=== PATIENT | female | born 1950 | race American Indian/Alaskan Native ===

== ENCOUNTER 2018-03-26 18:53 | Emergency (ER) | payer SELFPAY ==
[2018-03-26 19:14] VITALS: TEMP 99
--- NOTE | 2018-03-26 19:33 | ED PDOC ---
Arrival/HPI - General Chief Complaint: Back Pain Time Seen by Provider: 03/26/18 19:14 Historian: Patient - History of Present Illness Narrative History of Present Illness (Text): 03/26/18 19:30 67 year old female, whose past medical history includes hypertension, who presents to the ED complaining of back pain x 1 month. Patient denies any trauma , nausea, vomiting, diarrhea, neck pain, chest pain, SOB, or any other complaints. Time/Duration: Other (1 month) Symptom Onset: Gradual Symptom Course: Unchanged Activities at Onset: Light Context: Home Past Medical History - Provider Review Nursing Documentation Reviewed: Yes - Infectious Disease Hx of Infectious Diseases: None - Reproductive Menopause: Yes - Cardiac Hx Cardiac Disorders: Yes Hx Hypertension: Yes - Pulmonary Hx Respiratory Disorders: No - Neurological Hx Neurological Disorder: No - Hematological/Oncological Hx Blood Disorders: No - Integumentary Hx Dermatological Disorder: No - Genitourinary/Gynecological Hx Genitourinary Disorders: No - Psychiatric Hx Substance Use: No - Anesthesia Hx Anesthesia: No Family/Social History - Physician Review Nursing Documentation Reviewed: Yes Family/Social History: Unknown Family HX Smoking Status: Current Some Days Smoker Hx Alcohol Use: Yes Frequency of alcohol use: Socially Hx Substance Use: No Allergies/Home Meds Allergies/Adverse Reactions: Allergies No Known Allergies Allergy (Verified 03/26/18 19:14) Home Medications: Home Meds Medication Instructions Recorded Confirmed Metoprolol Tartrate [Lopressor] 12.5 mg PO BID 03/26/18 03/26/18 amLODIPine [Norvasc] 10 mg PO DAILY 03/26/18 03/26/18 Review of Systems - Physician Review All systems were reviewed & negative as marked: Yes - Review of Systems Constitutional: Normal Eyes: Normal ENT: Normal Respiratory: Normal. absent: SOB, Cough Cardiovascular: Normal. absent: Chest Pain Gastrointestinal: Normal. absent: Abdominal Pain, Diarrhea, Nausea, Vomiting Genitourinary Female: Normal. absent: Dysuria, Frequency Musculoskeletal: Back Pain. absent: Neck Pain Skin: Normal. absent: Rash Neurological: Normal. absent: Headache, Dizziness Endocrine: Normal Hemo/Lymphatic: Normal Psychiatric: Normal Physical Exam - Physical Exam Physical Exam Limitations: Uncooperative (Patient not allowing of full PE) Vital Signs Reviewed: Yes Vital Signs Temp Pulse Resp BP Pulse Ox 03/27/18 00:49 82 17 149/76 100 03/26/18 21:00 86 16 151/84 H 100 03/26/18 19:09 99 F 85 20 142/92 H 98 Temperature: Afebrile Blood Pressure: Hypertensive Pulse: Regular Respiratory Rate: Normal Appearance: Positive for: Well-Appearing, Non-Toxic, Comfortable Pain Distress: None Mental Status: Positive for: Alert and Oriented X 3 - Systems Exam Psychiatric: Present: Normal Concentration Medical Decision Making ED Course and Treatment: 03/26/18 19:33 Impression: 67 year old female presents to the ED complaining of back pain x 1 month. Plan: -- CT Lumbar Spine -- EKG -- Cardiac ISO -- Labs -- CXR -- Toradol -- Urine Culture -- UA Progress Notes: 03/26/18 21:07 CT Lumbar Spine Without Intravenous Contrast CLINICAL HISTORY: 67 years old, female; Pain; Low back pain TECHNIQUE: Axial computed tomography images of the lumbar spine without intravenous contrast. All CT scans at this facility use at least one of these dose optimization techniques: automated exposure control; mA and/or kV adjustment per patient size (includes targeted exams where dose is matched to clinical indication); or iterative reconstruction. COMPARISON: No relevant prior studies available. FINDINGS: Vertebrae: Scoliosis. No acute fracture. Discs/spinal canal/neural foramina: Moderate multilevel spondylosis. Most notably, prominent disc bulges at L4-5 and L5-S1 resulting in moderate canal stenosis. Neural foraminal narrowing is mild bilaterally at L2-3, moderate bilaterally at L3-4, moderate to severe bilaterally at L4-5, and severe bilaterally at L5-S1. Soft tissues: Unremarkable. 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 IMPRESSION: No acute fracture/dislocation. Multilevel spondylosis, as above 03/26/18 23:59 Chest X-ray reviewed, shows: No acute processes - Lab Interpretations Lab Results: 03/26/18 19:53 03/26/18 19:53 Lab Results 03/26/18 22:20: Urine Color Colorless, Urine Appearance Slight-cloudy, Urine pH 6.5, Ur Specific [place] <= 1.005, Urine Protein Negative, Urine Glucose (UA) Negative, Urine Ketones Negative, Urine Blood Negative, Urine Nitrate Negative, Urine Bilirubin Negative, Urine Urobilinogen 0.2, Ur Leukocyte Esterase Large H , Urine RBC Negative, Urine WBC 1 - 3, Ur Epithelial Cells 0 - 2, Urine Bacteria Trace 03/26/18 19:53: Sodium 136, Potassium 4.7, Chloride 99, Carbon Dioxide 22, Anion Gap 19, BUN 38 H, Creatinine 1.7 H, Est GFR ( Amer) 36, Est GFR ( Non-Af Amer) 30, Random Glucose 98, Calcium 9.7, Phosphorus 3.0, Magnesium 2.2, Total Bilirubin 0.3, AST 32, ALT 15, Alkaline Phosphatase 88, Lactate Dehydrogenase 435, Total Creatine Kinase 52, Troponin I < 0.01, Total Protein 8.1, Albumin 4.3, Globulin 3.9, Albumin/Globulin Ratio 1.1 03/26/18 19:53: PT 10.3, INR 0.91 03/26/18 19:53: WBC 12.7 H, RBC 3.74, Hgb 12.6, Hct 36.1, MCV 96.5, MCH 33.7, MCHC 34.9, RDW 15.7 H, Plt Count 292, MPV 8.6, Gran % 64.5, Lymph % (Auto) 27.0 , Smith % (Auto) 7.0 H, Eos % (Auto) 1.3 L, Baso % (Auto) 0.2, Gran # 8.18 H, Lymph # (Auto) 3.4, Smith # (Auto) 0.9 H, Eos # (Auto) 0.2, Baso # (Auto) 0.02 - RAD Interpretation Radiology Orders: 03/26/18 19:20 LUMBAR SPINE W/O CONTRAST [CT] Stat 03/26/18 19:45 CHEST PORTABLE [RAD] Stat - Medication Orders Current Medication Orders: Discontinued Medications Ceftriaxone Sodium (Rocephin 2 Gm Ivpb) 2 gm in 100 mls @ 100 mls/hr IVPB STAT STA PRN Reason: Protocol Stop: 03/27/18 00:55 Last Admin: 03/26/18 23:58 Dose: 100 mls/hr eMAR Start Stop Document 03/26/18 23:58 RD (Rec: 03/27/18 00:32 RD [id number]) Intravenous Solution Start Date 03/26/18 Start Time 23:58 End Date 03/27/18 End time 00:58 Total Infusion Time 60 Ketorolac Tromethamine (Toradol) 15 mg IVP STAT STA Stop: 03/26/18 19:21 Last Admin: 03/26/18 19:53 Dose: 15 mg MAR Pain Assessment Document 03/26/18 19:53 RD (Rec: 03/26/18 19:[address]) Pain Reassessment Is this a pain reassessment? No Sleep Is patient sleeping during reassessment? No Presence of Pain Presence of Pain Yes IVP Administration Document 03/26/18 19:53 RD (Rec: 03/26/18 19:53 RD [id number]) Charges for Administration # of IVP Administrations 1 - Scribe Statement The provider has reviewed the documentation as recorded by the Scribe Mirta Harrington All medical record entries made by the Scribe were at my direction and personally dictated by me. I have reviewed the chart and agree that the record accurately reflects my personal performance of the history, physical exam, medical decision making, and the department course for this patient. I have also personally directed, reviewed, and agree with the discharge instructions and disposition. Disposition/Present on Arrival - Present on Arrival Any Indicators Present on Arrival: No History of DVT/PE: No History of Uncontrolled Diabetes: No Urinary Catheter: No History of Decub. Ulcer: No History Surgical Site Infection Following: None - Disposition Have Diagnosis and Disposition been Completed?: Yes Diagnosis: Back pain, chronic, Hypertension, Acute UTI (urinary tract infection) Disposition: HOME/ ROUTINE Disposition Time: 01:00 Patient Plan: Discharge Condition: GOOD Discharge Instructions (ExitCare): Low Back Pain (DC), Urinary Tract Infection , Adult (DC) Additional Instructions: Mrs Chau- You need a primary doctor. You can become a patient of our clinic. Call tomorrow (Friday) to make an appointment. You have a urinary tract infection. Please take the antibiotics until they are all gone. Return to us if worse or new symptoms. Blake- Dr. Hussein Bonner Prescriptions: Cephalexin [Keflex] 500 mg PO TID #30 capsule Referrals: [facility] [Outside] - Follow up with primary Mary Lou Levin MD [Staff Provider] - Follow up with primary Forms: [facility] ([place]), WORK NOTE
[2018-03-26 20:24] LABS: BASO # 0.02 K/mm3 (0.0-2.0); BASO % 0.2 % (0.0-3.0); EOS # 0.2 (0.0-0.7); EOS % 1.3 % (1.5-5.0); GRAN # 8.18 (1.4-6.5); GRAN % 64.5 % (50.0-68.0); HEMOGLOBIN 12.6 g/dL (12.0-16.0); LYMPH # 3.4 (1.2-3.4); MEAN CELL VOLUME 96.5 fl (80.0-105.0); MEAN CORPUSCULAR HEMOGLOBIN 33.7 pg (25.0-35.0); MEAN CORPUSCULAR HGB CONC 34.9 g/dl (31.0-37.0); MEAN PLATELET VOLUME 8.6 fl (7.0-11.0); MONO # 0.9 (0.1-0.6); RBC 3.74 10^6/uL (3.5-6.1); RED CELL DISTRIBUTION WIDTH 15.7 % (11.5-14.5); WHITE BLOOD COUNT 12.7 10^3/ul (4.5-11.0)
[2018-03-26 20:26] LABS: INR 0.91; PROTHROMBIN TIME 10.3 SECONDS (9.4-12.5)
[2018-03-26 20:31] LABS: ALB/GLOB RATIO 1.1 (1.1-1.8); ALBUMIN 4.3 g/dL (3.0-4.8); ALT/SGPT 15 U/L (7-56); AST/SGOT 32 U/L (14-36); BLOOD UREA NITROGEN 38 mg/dL (7-21); CALCIUM 9.7 mg/dL (8.4-10.5); GFR AFRICAN-AMERICAN 36; GFR NON-AFRICAN AMERICAN 30
[2018-03-26 20:41] LABS: TROPONIN I < 0.01 ng/mL
[2018-03-26 21:01] VITALS: O2SAT 100
[2018-03-26 22:35] LABS: PH,URINE 6.5 (4.7-8.0); URINE APPEARANCE SLIGHT-CLOUDY (CLEAR); URINE BILIRUBIN NEGATIVE (NEGATIVE); URINE BLOOD NEGATIVE (NEGATIVE); URINE COLOR COLORLESS (YELLOW); URINE GLUCOSE (UA) NEGATIVE (NEGATIVE); URINE LEUKOCYTE ESTERASE LARGE Leu/uL (NEGATIVE); URINE PROTEIN NEGATIVE mg/dL (<30 mg/dL); URINE UROBILINOGEN 0.2 E.U./dL (<1 E.U./dL)
[2018-03-26 22:38] LABS: URINE BACTERIA TRACE (NEG); URINE EPITHELIAL CELLS 0 - 2 /hpf (0-5); URINE RBC NEGATIVE /hpf (0-2)
[2018-03-26] MEDS ORDERED: cefTRIAXone 2 GM IN NS 2 GM/100 ML BAG IVPB STA (23:56)
[2018-03-27 00:49] VITALS: BP 149/76; PULSE 82; RESP 17
--- NOTE | 2018-03-27 09:06 | RAD ---
Date of service: 03/26/2018 HISTORY: Hypertension and Low Back Pain COMPARISON: No prior. FINDINGS: LUNGS: No active pulmonary disease. PLEURA: No significant pleural effusion identified, no pneumothorax apparent. CARDIOVASCULAR: Normal. OSSEOUS STRUCTURES: No significant abnormalities. VISUALIZED UPPER ABDOMEN: Normal. OTHER FINDINGS: None. IMPRESSION: No active disease.
--- NOTE | 2018-03-27 10:06 | CT ---
Date of service: 03/26/2018 PROCEDURE: CT Lumbar Spine without contrast HISTORY: Low Back Pain COMPARISON: None available. TECHNIQUE: Axial computed tomography images were obtained of the lumbar spine without the use of intravenous contrast. Coronal and sagittal reformatted images were created and reviewed. Radiation dose: Total exam DLP = mGy-cm. This CT exam was performed using one or more of the following dose reduction techniques: Automated exposure control, adjustment of the mA and/or kV according to patient size, and/or use of iterative reconstruction technique. FINDINGS: VERTEBRAE: Unremarkable. No fracture. Normal alignment. DISCS/SPINAL CANAL/NEURAL FORAMINA: Multilevel degenerative disc disease with vacuum disc phenomenon and disc bulging at L4-5 and L5-S1. Bilateral from stenosis at L5-S1. PARASPINAL SOFT TISSUES: Unremarkable. OTHER FINDINGS: None. IMPRESSION: Multilevel degenerative changes. No fracture.
== END 2018-03-27 00:49 | disposition home or self-care (01) ==
LOC: ED 18:53 → MERGE 18:53 → ED 03-27 00:49
DX: I10 Essential (primary) hypertension (principal); M54.9 Dorsalgia, unspecified; G89.29 Other chronic pain; N39.0 Urinary tract infection, site not specified; F17.210 Nicotine dependence, cigarettes, uncomplicated
CPT/HCPCS: 71045; 72131; 80053; 81001; 82550; 83615; 83735; 84100; 84484; 85025; 85610; 87086; 87181; 96365; 96374; 99283; J0696; J1885

== ENCOUNTER 2018-04-10 16:17 | Emergency (ER) | payer MEDICARE ==
--- NOTE | 2018-04-10 16:51 | ED PDOC ---
Addendum entered and electronically signed by Rene Cochran DO 04/10/18 20:00 : Addendum Addendum: 04/10/18 19:57 Patient's BP rechecked at 1950, still elevated at 200/100. Patient states she would rather go home and refused dose of IV hydralazine. Will continue with discharge with close follow up at [facility]. Patient agreed to take her medications tonight. Original Note: Arrival/HPI - General Historian: Patient - History of Present Illness Time/Duration: Prior to Arrival Symptom Onset: Gradual Symptom Course: Unchanged Activities at Onset: Rest <Rene Cochran - Last Filed: 04/10/18 19:57> <Boris Long - Last Filed: 04/10/18 21:42> - General Chief Complaint: High Blood Pressure Time Seen by Provider: 04/10/18 16:27 - History of Present Illness Narrative History of Present Illness (Text): 04/10/18 16:48 Patient is a 67 year old female with PMH of HTN and brain aneurysm who presents to ED from [facility] for elevated BP. She denies any symptoms including GALAVIZ, blurred vision, CP, SOB, nausea/vomiting, or peripheral numbness/tingling. She states that she ran out of her BP medicines and only took a single dose of amlodipine this morning. (Rene Cochran) Past Medical History - Provider Review Nursing Documentation Reviewed: Yes - Travel History Have you recently traveled outside [place] w/in the past 3 mons?: No - Infectious Disease Hx of Infectious Diseases: None - Reproductive Menopause: Yes - Cardiac Hx Cardiac Disorders: Yes Hx Hypertension: Yes - Pulmonary Hx Respiratory Disorders: No - Neurological Hx Neurological Disorder: No - Hematological/Oncological Hx Blood Disorders: No - Integumentary Hx Dermatological Disorder: No - Genitourinary/Gynecological Hx Genitourinary Disorders: No - Psychiatric Hx Substance Use: No - Surgical History Hx Coronary Stent: Yes - Anesthesia Hx Anesthesia: No <Rene Cochran - Last Filed: 04/10/18 19:57> Family/Social History - Physician Review Nursing Documentation Reviewed: Yes Family/Social History: Diabetes (father), Neoplasm/Cancer (mother had breast CA) Smoking Status: Heavy Smoker > 10 Cigarettes Daily (1 PPD for 50 years) Hx Alcohol Use: Yes Frequency of alcohol use: Few days per week Hx Substance Use: No <Rene Cochran - Last Filed: 04/10/18 19:57> Allergies/Home Meds <Rene Cochran - Last Filed: 04/10/18 19:57> <DaniBoris monae - Last Filed: 04/10/18 21:42> Allergies/Adverse Reactions: Allergies No Known Allergies Allergy (Verified 03/26/18 19:14) Review of Systems - Review of Systems Constitutional: absent: Fatigue, Fevers Eyes: absent: Vision Changes ENT: absent: Hearing Changes, Sore Throat, Rhinorrhea Respiratory: absent: SOB, Cough Cardiovascular: absent: Chest Pain, Palpitations Gastrointestinal: absent: Abdominal Pain, Nausea, Vomiting Genitourinary Female: absent: Dysuria Skin: absent: Rash Neurological: absent: Headache, Dizziness, Speech Changes, Facial Droop Endocrine: absent: Diaphoresis Psychiatric: absent: Anxiety, Depression <Rene Cochran - Last Filed: 04/10/18 19:57> Physical Exam Vital Signs Reviewed: Yes Temperature: Afebrile Blood Pressure: Hypertensive Pulse: Regular Respiratory Rate: Normal Appearance: Positive for: Well-Appearing, Non-Toxic, Comfortable Pain Distress: None Mental Status: Positive for: Alert and Oriented X 3 - Systems Exam Head: Present: Atraumatic, Normocephalic Pupils: Present: PERRL Extroacular Muscles: Present: EOMI Conjunctiva: Present: Normal Ears: Present: Normal Mouth: Present: Moist Mucous Membranes Pharnyx: Present: Normal. No: ERYTHEMA, EXUDATE Nose (External): Present: Atraumatic Neck: Present: Normal Range of Motion. No: JVD Respiratory/Chest: Present: Clear to Auscultation. No: Wheezes, Rales, Rhonchi Cardiovascular: Present: Regular Rate and Rhythm, Normal S1, S2. No: Murmurs, Rub, Gallop Abdomen: No: Tenderness, Rebound, Guarding Back: Present: Normal Inspection Upper Extremity: Present: Normal Inspection. No: Cyanosis Lower Extremity: Present: Normal Inspection. No: Edema Neurological: Present: CN II-XII Intact, Speech Normal, Motor Func Grossly Intact, Normal Sensory Function, Gait Normal Skin: Present: Warm, Dry Psychiatric: Present: Alert, Oriented x 3 <CochranRene montaño - Last Filed: 04/10/18 19:57> Vital Signs Temp Pulse Resp BP Pulse Ox 04/10/18 20:00 98 F 74 18 194/100 H 100 04/10/18 18:53 98.0 F 71 19 190/95 H 99 04/10/18 18:30 177/105 H 04/10/18 17:00 66 18 177/103 H 99 04/10/18 16:26 98.8 F 67 18 208/121 H 99 Medical Decision Making - Lab Interpretations I have reviewed the lab results: Yes Interpretation: All labs normal - RAD Interpretation Insulation Cupola Operator: Radiologist - EKG Interpretation Interpreted by ED Physician: Yes Comparison: No previous EKG avail. <Rene Cochran - Last Filed: 04/10/18 19:57> <Boris Long - Last Filed: 04/10/18 21:42> ED Course and Treatment: 04/10/18 16:52 -Patient with asymptomatic HTN secondary to running out of her medicines -There was concern given her history of aneurysm -Will get CBC, CMP, CT head wo contrast to r/o end organ damage and/or aneurismal involvement -Will give dose of home amlodipine and continue to monitor 04/10/18 18:26 -Discussed results of CT regarding mastoid air cells -Otoscopic examination showed mildly opaque TM -Will give amoxicillin 500 mg TID x 7 days for otitis media -Will give 2 week supply of BP medications, patient agreed to follow up with [facility] by then -Will refer to ENT for additional management -Labs without evidence of end organ damage -Will discharge with close follow up at [facility] 04/10/18 19:25 -BP decreased s/p single dose of amlodipine -Encouraged patient follow up at [facility] (Rene Cochran) 04/10/18 21:37 pt seen with resident. sent in from clin for htn. h/of aneursym. pt denies any galaviz or complaint. labs neg,e xcept mild leukocytosis ct incidental finding of om and mastoid effusion, no mastoid ttp on exam. emprica antibiotics given. mild leukocytosis improved from recent. pt refuses further b/p mangement in er, asking for dc. neuro intac.t 04/10/18 21:38 (Boris Long) - Lab Interpretations Lab Results: 04/10/18 17:25 04/10/18 17:25 Lab Results 04/10/18 17:25: Sodium 140, Potassium 4.6, Chloride 98, Carbon Dioxide 32, Anion Gap 14, BUN 18, Creatinine 1.1, Est GFR ( Amer) 60, Est GFR (Non- Af Amer) 50, Random Glucose 90, Calcium 9.5, Magnesium 1.9, Total Bilirubin 0.6 , AST 32, ALT 24, Alkaline Phosphatase 98, Lactate Dehydrogenase 539, Total Creatine Kinase 85, Troponin I < 0.01, Total Protein 8.0, Albumin 4.3, Globulin 3.8, Albumin/Globulin Ratio 1.1 04/10/18 17:25: Urine Color Yellow, Urine Appearance Clear, Urine pH 7.5, Ur Specific [place] 1.010, Urine Protein 100 H, Urine Glucose (UA) Negative, Urine Ketones Negative, Urine Blood Negative, Urine Nitrate Negative, Urine Bilirubin Negative, Urine Urobilinogen 1.0 H, Ur Leukocyte Esterase Negative, Urine RBC TEST NOT PERFORMED, Urine WBC 5 - 10, Ur Epithelial Cells 6 - 8 04/10/18 17:25: PT 9.7, INR 0.85, APTT 27.8 04/10/18 17:25: WBC 12.4 H, RBC 3.91, Hgb 13.1, Hct 37.5, MCV 95.9, MCH 33.5, MCHC 34.9, RDW 16.1 H, Plt Count 255, MPV 8.5, Gran % 72.9 H, Lymph % (Auto) 20.4 L, [place] % (Auto) 5.3, Eos % (Auto) 1.2 L, Baso % (Auto) 0.2, Gran # 9.03 H , Lymph # (Auto) 2.5, [place] # (Auto) 0.7 H, Eos # (Auto) 0.2, Baso # (Auto) 0.02 - RAD Interpretation Narrative RAD Interpretations (Text): 04/10/18 18:25 CT Head: FINDINGS: HEMORRHAGE: No intracranial hemorrhage. BRAIN: The patient appears to be status post endovascular coiling of an aneurysm at the anterior right side of the stebbins Nielson off the parasagittal plane potentially reflecting anterior communicating, proximal right BRANDEN or MCA aneurysm. Artifacts from these coils obscure the evaluation, particularly the suprasellar cistern and central medial frontal and temporal lobes however no definite acute or subacute lobar infarction is appreciated by standard CT criteria. Likely chronic lacunes are seen at the bilateral external capsules however and there is a chronic lobar infarction at the right parietal lobe posteriorly. There is no mass effect or suspicious extra-axial fluid collection identified. Posterior fossa contents appear unremarkable including the brainstem. VENTRICLES: Unremarkable. No hydrocephalus. CALVARIUM: Unremarkable. PARANASAL SINUSES: Unremarkable as visualized. No significant inflammatory changes. MASTOID AIR CELLS: Probable hypoplastic bilateral mastoid air cells. Left otitis media with mastoid effusion noted. OTHER FINDINGS: None. IMPRESSION: 1. 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 Artifact from this hardware obscure the evaluation however there is no definitive intracranial hemorrhage or mass effect appreciated. No overt CT sign of acute subacute lobar brain infarction. Chronic lobar infarction right parietal lobe with a few tiny chronic lacunes identified of the bilateral internal capsules. 2. Incidental left otitis media and mastoid effusion identified. Hypoplastic bilateral mastoid air cells suggested (Rene Cochran) Radiology Orders: 04/10/18 17:02 HEAD W/O CONTRAST [CT] Stat - EKG Interpretation EKG Interpretation (Text): 04/10/18 18:29 NSR with no significant LVH or bundle branch block (Rene Cochran) - Medication Orders Current Medication Orders: Discontinued Medications Amlodipine Besylate (Norvasc) 10 mg PO STAT STA Stop: 04/10/18 18:12 Last Admin: 04/10/18 18:30 Dose: 10 mg MAR Blood Pressure Document 04/10/18 18:30 CAST (Rec: 04/10/18 18:31 [facility] [id number]) Blood Pressure Blood Pressure (100/60-150/90) 177/105 <Rene Cochran - Last Filed: 04/10/18 19:57> - Scribe Statement The provider has reviewed the documentation as recorded by the Scribe <Boris Long - Last Filed: 04/10/18 21:42> - Scribe Statement Elian Camar[place] Patient Seen With Resident: In agreement with resident note which contains more details about the patient. Patient was seen and evaluated with resident. Came up with plan and treatment together. (Boris Long) Disposition/Present on Arrival - Present on Arrival Any Indicators Present on Arrival: No History of DVT/PE: No History of Uncontrolled Diabetes: No Urinary Catheter: No History of Decub. Ulcer: No History Surgical Site Infection Following: None - Disposition Have Diagnosis and Disposition been Completed?: Yes Disposition Time: 18:59 <Rene Cochran - Last Filed: 04/10/18 19:57> <Boris Long - Last Filed: 04/10/18 21:42> - Disposition Diagnosis: Hypertension, Essential hypertension, Otitis media Disposition: HOME/ ROUTINE Condition: GOOD Discharge Instructions (ExitCare): High Blood Pressure (DC) Prescriptions: amLODIPine [Norvasc] 10 mg PO DAILY #14 tab Amoxicillin 500 mg PO TID 7 Days #21 tablet Metoprolol Tartrate [Lopressor] 12.5 mg PO BID #28 tab Referrals: Chi King DO [Staff Provider] - Follow up with primary Forms: [employer] (Guyanese)
[2018-04-10 18:07] LABS: BASO # 0.02 K/mm3 (0.0-2.0); BASO % 0.2 % (0.0-3.0); EOS # 0.2 (0.0-0.7); EOS % 1.2 % (1.5-5.0); GRAN # 9.03 (1.4-6.5); GRAN % 72.9 % (50.0-68.0); HEMOGLOBIN 13.1 g/dL (12.0-16.0); LYMPH # 2.5 (1.2-3.4); LYMPH % 20.4 % (22.0-35.0); MEAN CELL VOLUME 95.9 fl (80.0-105.0); MEAN CORPUSCULAR HEMOGLOBIN 33.5 pg (25.0-35.0); MEAN CORPUSCULAR HGB CONC 34.9 g/dl (31.0-37.0); MEAN PLATELET VOLUME 8.5 fl (7.0-11.0); MONO # 0.7 (0.1-0.6); MONO % 5.3 % (1.0-6.0); PH,URINE 7.5 (4.7-8.0); RBC 3.91 10^6/uL (3.5-6.1); RED CELL DISTRIBUTION WIDTH 16.1 % (11.5-14.5); URINE BILIRUBIN NEGATIVE (NEGATIVE); URINE BLOOD NEGATIVE (NEGATIVE); URINE GLUCOSE (UA) NEGATIVE (NEGATIVE); URINE LEUKOCYTE ESTERASE NEGATIVE Leu/uL (NEGATIVE); URINE PROTEIN 100 mg/dL (<30 mg/dL); WHITE BLOOD COUNT 12.4 10^3/ul (4.5-11.0)
[2018-04-10 18:10] LABS: URINE APPEARANCE CLEAR (CLEAR); URINE COLOR YELLOW (YELLOW)
[2018-04-10 18:11] LABS: INR 0.85; PARTIAL THROMBOPLASTIN TIME 27.8 Seconds (25.1-36.5)
[2018-04-10 18:16] LABS: PROTHROMBIN TIME 9.7 SECONDS (9.4-12.5); TROPONIN I < 0.01 ng/mL
[2018-04-10 18:19] LABS: ALB/GLOB RATIO 1.1 (1.1-1.8); ALBUMIN 4.3 g/dL (3.0-4.8); ALT/SGPT 24 U/L (7-56); AST/SGOT 32 U/L (14-36); BLOOD UREA NITROGEN 18 mg/dL (7-21); CALCIUM 9.5 mg/dL (8.4-10.5); GFR NON-AFRICAN AMERICAN 50
--- NOTE | 2018-04-10 18:22 | CT ---
Date of service: 04/10/2018 PROCEDURE: CT HEAD WITHOUT CONTRAST. HISTORY: duradn COMPARISON: None available. TECHNIQUE: Axial computed tomography images were obtained through the head/brain without intravenous contrast. Radiation dose: Total exam DLP = 790.10 mGy-cm. This CT exam was performed using one or more of the following dose reduction techniques: Automated exposure control, adjustment of the mA and/or kV according to patient size, and/or use of iterative reconstruction technique. FINDINGS: HEMORRHAGE: No intracranial hemorrhage. BRAIN: The patient appears to be status post endovascular coiling of an aneurysm at the anterior right side of the [place] Nielson off the parasagittal plane potentially reflecting anterior communicating, proximal right BRANDEN or MCA aneurysm. Artifacts from these coils obscure the evaluation, particularly the suprasellar cistern and central medial frontal and temporal lobes however no definite acute or subacute lobar infarction is appreciated by standard CT criteria. Likely chronic lacunes are seen at the bilateral external capsules however and there is a chronic lobar infarction at the right parietal lobe posteriorly. There is no mass effect or suspicious extra-axial fluid collection identified. Posterior fossa contents appear unremarkable including the brainstem. VENTRICLES: Unremarkable. No hydrocephalus. CALVARIUM: Unremarkable. PARANASAL SINUSES: Unremarkable as visualized. No significant inflammatory changes. MASTOID AIR CELLS: Probable hypoplastic bilateral mastoid air cells. Left otitis media with mastoid effusion noted. OTHER FINDINGS: None. IMPRESSION: 1. Prior endovascular therapy for anterior [place] Nielson aneurysm as discussed above. Artifact from this hardware obscure the evaluation however there is no definitive intracranial hemorrhage or mass effect appreciated. No overt CT sign of acute subacute lobar brain infarction. Chronic lobar infarction right parietal lobe with a few tiny chronic lacunes identified of the bilateral internal capsules. 2. Incidental left otitis media and mastoid effusion identified. Hypoplastic bilateral mastoid air cells suggested
[2018-04-10 20:03] VITALS: BP 194/100; PULSE 74; RESP 18; TEMP 98; O2SAT 100
--- NOTE | 2018-04-11 14:36 | CARD ---
APPROVED REPORT Date of service: 04/10/2018 EKG Measurement Heart [id number] <Conclusion> Poor data quality, interpretation may be adversely affected Normal sinus rhythm Moderate voltage criteria for LVH, may be normal variant Prolonged QT Abnormal ECG
== END 2018-04-10 20:05 | disposition home or self-care (01) ==
LOC: ED 16:17
DX: H66.92 Otitis media, unspecified, left ear (principal); I10 Essential (primary) hypertension; F17.210 Nicotine dependence, cigarettes, uncomplicated

== ENCOUNTER 2018-12-23 22:45 | Emergency (ER) | payer MEDICARE ==
--- NOTE | 2018-12-24 00:23 | ED PDOC ---
Arrival/HPI - General Chief Complaint: Back Pain Time Seen by Provider: 12/23/18 23:49 Historian: Patient - History of Present Illness Narrative History of Present Illness (Text): 12/24/18 00:23 A 68 year old female, whose past medical history includes hypertension, presents to the emergency department complaining of right side lower back pain starting tonight. Patient reports also experiencing tinlging going down right leg and toes are numb. Admits to drinking a few shots tonight and denies any trauma. Able to ambulate. Patient denies any urinary symptoms, fever, nausea, vomiting, or any other complaints at this time. Past Medical History - Provider Review Nursing Documentation Reviewed: Yes - Infectious Disease Hx of Infectious Diseases: None - Cardiac Hx Cardiac Disorders: Yes Hx Hypertension: Yes - Pulmonary Hx Respiratory Disorders: No - Neurological Hx Neurological Disorder: No - Hematological/Oncological Hx Blood Disorders: No - Integumentary Hx Dermatological Disorder: No - Genitourinary/Gynecological Hx Genitourinary Disorders: No - Psychiatric Hx Substance Use: No - Surgical History Hx Coronary Stent: Yes - Anesthesia Hx Anesthesia: No Family/Social History - Physician Review Nursing Documentation Reviewed: Yes Family/Social History: No Known Family HX Smoking Status: Heavy Smoker > 10 Cigarettes Daily Hx Alcohol Use: Yes Hx Substance Use: No Allergies/Home Meds Allergies/Adverse Reactions: Allergies No Known Allergies Allergy (Verified 03/26/18 19:14) Review of Systems - Physician Review All systems were reviewed & negative as marked: Yes - Review of Systems Constitutional: absent: Fevers Gastrointestinal: absent: Nausea, Vomiting Genitourinary Female: absent: Dysuria, Frequency, Hematuria, Urine Output Changes Musculoskeletal: Back Pain (right side lower back pain) Physical Exam Appearance: Positive for: Other (mildly intoxicated) Pain Distress: None - Systems Exam Head: Present: Atraumatic, Normocephalic Pupils: Present: PERRL Extroacular Muscles: Present: EOMI Conjunctiva: Present: Normal Mouth: Present: Moist Mucous Membranes Neck: Present: Normal Range of Motion Respiratory/Chest: Present: Clear to Auscultation, Good Air Exchange. No: Respiratory Distress, Accessory Muscle Use Cardiovascular: Present: Regular Rate and Rhythm, Normal S1, S2. No: Murmurs Abdomen: No: Tenderness, Distention, Peritoneal Signs Back: Present: Other (tenderness to right lumbar region). No: Midline Tenderness Upper Extremity: Present: Normal Inspection. No: Cyanosis, Edema Lower Extremity: Present: Normal Inspection, NORMAL PULSES (good DP pulses to feet), Neurovascularly Intact, Other (straight leg raise bilaterally negative). No: Edema, Tenderness (no hip tenderness) Neurological: Present: GCS=15, CN II-XII Intact, Speech Normal Skin: Present: Warm, Dry, Normal Color. No: Rashes Psychiatric: Present: Alert, Oriented x 3, Normal Insight, Normal Concentration Medical Decision Making ED Course and Treatment: 12/24/18 00:28 Impression: 68 year old female with right side lower back pain, patient cur rently mildly intoxicated. Plan: -- Labs -- Urinalysis -- Toradol -- Reassess and disposition Progress Notes: Toradol ordered for pain but patient refused. Intoxicated, promptly fell asleep. In no distress. Norvasc 10mg (home dose) given for HTN. Family concerned for "kidney infection" as back pain is near R flank. Labs and UA done, mild UTI noted. Rx written for macrobid. Patient requesting refill of Norvasc, states she has not taken it for over 2 weeks because her PMD "said that they sent a refill to the pharmacy but it wasn't there". - Medication Orders Current Medication Orders: Discontinued Medications Ketorolac Tromethamine (Toradol) 30 mg IM STAT STA Stop: 12/24/18 00:13 - Scribe Statement The provider has reviewed the documentation as recorded by the Whitney Hussein Provider Scribe Attestation: All medical record entries made by the Whitney were at my direction and personally dictated by me. I have reviewed the chart and agree that the record accurately reflects my personal performance of the history, physical exam, medical decision making, and the department course for this patient. I have also personally directed, reviewed, and agree with the discharge instructions and disposition. Disposition/Present on Arrival - Present on Arrival Any Indicators Present on Arrival: No History of DVT/PE: No History of Uncontrolled Diabetes: No Urinary Catheter: No History of Decub. Ulcer: No History Surgical Site Infection Following: None - Disposition Have Diagnosis and Disposition been Completed?: Yes Diagnosis: UTI (urinary tract infection), Sciatica, Medication refill Disposition: HOME/ ROUTINE Disposition Time: 04:40 Condition: STABLE Discharge Instructions (ExitCare): Sciatica (DC), Urinary Tract Infection, Adult (DC) Additional Instructions: TREVIN REINOSO, thank you for letting us take care of you today. Your provider was Pia Crockett MD and you were treated for BACK PAIN. The emergency medical care you received today was directed at your acute symptoms. If you were prescribed any medication, please fill it and take as directed. It may take several days for your symptoms to resolve. Return to the Emergency Department if your symptoms worsen, do not improve, or if you have any other problems. Please contact your doctor or call one of the physicians/clinics you have been referred to that are listed on the Patient Visit Information form that is included in your discharge packet. Bring any paperwork you were given at discharge with you along with any medications you are taking to your follow up visit. Our treatment cannot replace ongoing medical care by a primary care provider outside of the emergency department. Thank you for allowing the [facility] team to be part of your care today. If you had an X-Ray or CT scan: A Radiologist will review the ED reading if any change in treatment is needed we will contact you. If you had a blood, urine, or wound culture: It will take several days for the results, if any change in treatment is needed we will contact you. If you had an STI test: It will take 48 hours for the results. Please call after 1 week if you have not heard back. Prescriptions: amLODIPine [Norvasc] 10 mg PO DAILY #14 tab Nitrofurantoin Macrocrystals [Macrobid] 100 mg PO BID #14 cap Referrals: Mary Lou Levin MD [Primary Care Provider] - Follow up with primary Forms: [employer] ([place])
[2018-12-24 01:21] LABS: BASO # 0.02 K/mm3 (0.0-2.0); BASO % 0.2 % (0.0-3.0); EOS # 0.2 (0.0-0.7); EOS % 1.6 % (1.5-5.0); HEMOGLOBIN 12.9 g/dL (12.0-16.0); LYMPH % 28.4 % (22.0-35.0); MEAN CORPUSCULAR HEMOGLOBIN 33.1 pg (25.0-35.0); MEAN CORPUSCULAR HGB CONC 33.2 g/dl (31.0-37.0); MEAN PLATELET VOLUME 9.2 fl (7.0-11.0); MONO # 0.7 (0.1-0.6); MONO % 6.6 % (1.0-6.0); RBC 3.9 10^6/uL (3.5-6.1); RED CELL DISTRIBUTION WIDTH 16.2 % (11.5-14.5); WHITE BLOOD COUNT 10.7 10^3/uL (4.5-11.0)
[2018-12-24 01:24] LABS: MEAN CELL VOLUME 99.7 fl (80.0-105.0)
[2018-12-24 02:06] VITALS: TEMP 97.5
[2018-12-24 02:24] LABS: BLOOD UREA NITROGEN 15 mg/dL (7-21); CALCIUM 8.9 mg/dL (8.4-10.5); GFR NON-AFRICAN AMERICAN 55
[2018-12-24 02:37] VITALS: O2SAT 97
[2018-12-24 03:52] LABS: PH,URINE 7.5 (4.7-8.0); URINE BILIRUBIN NEGATIVE (NEGATIVE); URINE BLOOD NEGATIVE (NEGATIVE); URINE GLUCOSE (UA) NEGATIVE (NEGATIVE); URINE LEUKOCYTE ESTERASE SMALL Leu/uL (NEGATIVE); URINE PROTEIN 100 mg/dL (<30 mg/dL); URINE UROBILINOGEN 0.2 E.U./dL (<1 E.U./dL)
[2018-12-24 04:00] LABS: URINE APPEARANCE SL CLOUDY (CLEAR); URINE COLOR YELLOW (YELLOW)
[2018-12-24 04:28] LABS: URINE RBC 0 - 2 /hpf (0-2)
[2018-12-24 04:29] LABS: URINE BACTERIA SMALL /hpf
[2018-12-24 05:36] VITALS: BP 168/99; PULSE 80; RESP 17
== END 2018-12-24 05:30 | disposition home or self-care (01) ==
LOC: ED 22:45
DX: N39.0 Urinary tract infection, site not specified (principal); M54.30 Sciatica, unspecified side; Z76.0 Encounter for issue of repeat prescription; I10 Essential (primary) hypertension; Z95.5 Presence of coronary angioplasty implant and graft; F17.210 Nicotine dependence, cigarettes, uncomplicated